=== PATIENT | female | born 1970 | race Caucasian/White ===

== ENCOUNTER 2022-10-27 14:00 | Day surgery (SDC) | payer SELFPAY ==
[2022-10-26 15:22] VITALS: BMI 27.3
[2022-10-27 15:21] VITALS: TEMP 98
[2022-10-27 15:50] VITALS: BP 115/70; PULSE 68; RESP 16
== END 2022-10-27 15:48 | disposition home or self-care (01) ==
LOC: JASU-ENDO 14:00
PROVIDERS: ATTEND Student in an Organized Health Care Education/Training Program
PROC: 0DJ08ZZ Inspection of Upper Intestinal Tract, Via Natural or Artificial Opening Endoscopic (ICD-10-PCS; principal; 2022-10-27 15:00)
DX: R12 Heartburn (principal)
CPT/HCPCS: 81025